=== PATIENT | male | born 1990 | race Two or more races ===

== ENCOUNTER 2017-01-27 10:37 | Emergency (ER) | payer MEDICAID, OTHER ==
[2017-01-27] MEDS ORDERED: DEXAMETHASONE SOD PHOS INJ 10 MG/1 ML VIAL IM ONE (11:17)
[2017-01-27] MEDS ORDERED: KETOROLAC TROMETHAMINE 60 MG/2 ML SDV IM ONE (11:17)
--- NOTE | 2017-01-27 11:21 | ER Document Report ---
ED ENT - General Chief Complaint: Sore Throat Stated Complaint: THROAT PAIN Time seen by provider: 11:16 Mode of Arrival: Ambulatory Information source: Patient Notes: 26-year-old male presents to ED for "very bad sore throat "he also has runny nose and cough. They she has not been able to eat anything solid for the last 3 days due to the pain in his throat. - HPI Patient complains to provider of: Throat problem Onset: Other Onset/Duration: Gradual - Saturday Quality of pain: Sharp, Stabbing Severity: Moderate Pain Level: 4 Context: Recent Illness Location of pain: Throat Associated symptoms: Cough, Runny nose, Sore throat Similar symptoms previously: No Recently seen / treated by doctor: No - Related Data Allergies/Adverse Reactions: No Known Allergies Allergy (Unverified 01/27/17 11:25) Past Medical History - General Information source: Patient - Social History Smoking Status: Current Every Day Smoker Cigarette use (# per day): Yes - half pack a day Chew tobacco use (# tins/day): No Smoking Education Provided: Yes - less than 1 minute Frequency of alcohol use: Occasional Drug Abuse: None Occupation: [employer] Lives with: Grandparent(s) Family History: Malignancy - Past Medical History Cardiac Medical History: Reports: None Pulmonary Medical History: Reports: None EENT Medical History: Reports: None Neurological Medical History: Reports: None Endocrine Medical History: Reports: None Renal/ Medical History: Reports: None Malignancy Medical History: Reports None GI Medical History: Reports: None Musculoskeltal Medical History: Reports None Skin Medical History: Reports None Psychiatric Medical History: Reports: None Traumatic Medical History: Reports: None Infectious Medical History: Reports: None Surgical Hx: Negative Past Surgical History: Reports: None - Immunizations Immunizations up to date: Yes Hx Diphtheria, Pertussis, Tetanus Vaccination: Yes Review of Systems - Review of Systems Constitutional: No symptoms reported EENT: Nose discharge, Sinus discharge, Throat pain Cardiovascular: No symptoms reported Respiratory: Cough Gastrointestinal: No symptoms reported Genitourinary: No symptoms reported Male Genitourinary: No symptoms reported Musculoskeletal: No symptoms reported Skin: No symptoms reported Hematologic/Lymphatic: No symptoms reported Neurological/Psychological: No symptoms reported -: Yes All other systems reviewed and negative Physical Exam - Vital signs Vitals: Temp Pulse Resp BP Pulse Ox 98.7 F 71 18 138/72 H 98 01/27/17 11:01 01/27/17 11:01 01/27/17 11:01 01/27/17 11:01 01/27/17 11:01 Interpretation: Normal - General General appearance: Appears well, Alert - HEENT Head: Normocephalic, Atraumatic Eyes: Normal Pupils: PERRL Ears: Normal External canal: Normal Tympanic membrane: Normal Sinus: Normal Nasal: Swelling, Clear rhinorrhea Mouth/Lips: Normal Mucous membranes: Normal Pharynx: Erythema, Exudate, Tonsillar hypertrophy Neck: Normal - Respiratory Respiratory status: No respiratory distress Chest status: Nontender Breath sounds: Nonproductive cough Chest palpation: Normal - Cardiovascular Rhythm: Regular Heart sounds: Normal auscultation Murmur: No - Abdominal Inspection: Normal Distension: No distension Bowel sounds: Normal Tenderness: Nontender Organomegaly: No organomegaly - Back Back: Normal, Nontender - Extremities General upper extremity: Normal inspection, Nontender, Normal color, Normal ROM , Normal temperature General lower extremity: Normal inspection, Nontender, Normal color, Normal ROM , Normal temperature, Normal weight bearing. No: Alvaerz's sign - Neurological Neuro grossly intact: Yes Cognition: Normal Orientation: AAOx4 Natalio Coma Scale Eye Opening: Spontaneous Natalio Coma Scale Verbal: Oriented Natalio Coma Scale Motor: Obeys Commands Natalio Coma Scale Total: 15 Speech: Normal Motor strength normal: LUE, RUE, LLE, RLE Sensory: Normal - Psychological Associated symptoms: Normal affect, Normal mood - Skin Skin Temperature: Warm Skin Moisture: Dry Skin Color: Normal Course - Re-evaluation Re-evalutation: 01/27/17 15:55 Discussed patient's assessment and history with Dr. Sharp. Toradol IV, Decadron IV, clindamycin IV and CT soft tissue neck were ordered. CT came back unsure if there is a peritonsillar abscess due to dental appliance. Dr. Sharp recommended calling ENT. Spoke with Dr. Handy in [facility] ears nose and throat. He requested that a CD of the CT as well as all lab results be sent with patient and for the patient to call at 8:00 in the morning to schedule a follow-up visit. CD and all the lab work as well as the CT report with patient as well as instructions to call the [facility] ears nose and throat at 8:00 in the morning. He was also sent home with a prescription for clindamycin. - Vital Signs Vital signs: Temp Pulse Resp BP Pulse Ox 98.4 F 75 16 126/75 H 99 01/27/17 14:51 01/27/17 14:51 01/27/17 14:51 01/27/17 14:51 01/27/17 14:51 - Laboratory Result Diagrams: 01/27/17 11:45 Laboratory results interpreted by me: 01/27/17 11:45 WBC 20.7 H Seg Neuts % (Manual) 84 H Band Neutrophils % 1 L Lymphocytes % (Manual) 7 L Abs Neuts (Manual) 17.6 H Abs Monocytes (Manual) 1.7 H - Diagnostic Test Radiology reviewed: Image reviewed, Reports reviewed Discharge - Discharge Clinical Impression: Strep throat Difficulty swallowing Qualifiers: Dysphagia type: unspecified Qualified Code(s): R13.10 - Dysphagia, unspecified Condition: Stable Disposition: HOME, SELF-CARE Additional Instructions: STREP THROAT: Your sore throat is due to the streptococcus germ (strep throat). Strep throat usually makes you feel quite ill with fever and aches, headache, swollen sore throat, and tender bumps under the angles of the jaw. Strep throat requires antibiotic treatment. Although the sore throat may go away by itself, complications such as rheumatic fever, kidney disease, or throat abscess can occur. We usually prescribe antibiotics by mouth. Be sure to take the medicine until it's gone. If you stop early, the strep may come back. If you are vomiting, are severely ill, or can't remember to take pills, we can give you an antibiotic shot. Take acetaminophen or ibuprofen for pain and fever. Sip frequent clear liquids, or use popsicles or ice chips. Anesthetic sprays or lozenges may help. Make sure the air in the room is not too dry. Avoid using decongestants or antihistamines. Call the doctor if there is no improvement in three days, or if you have difficulty breathing, increasing throat pain, high fever, rash, or frequent vomiting. Clindamycin You have been given a prescription for the antibiotic clindamycin. It is often prescribed for infections in the mouth, such as dental infections or abscesses, and for skin infections due to MRSA. It's important that you take all the medication, unless instructed otherwise by your physician. Failure to complete the entire course can result in relapse of your condition. Common side effects of antibiotics include nausea, intestinal cramping, or diarrhea. Women may develop vaginal yeast infections, and babies can get yeast (thrush) in the mouth following the use of antibiotics. Contact your physician if you develop significant side effects from this medication. Allergy to this antibiotic can result in hives, wheezing, faintness, or itching. If symptoms of allergy occur, stop the medication and call the doctor. Toradol Injection You have been given an injection of ketorolac tromethamine (Toradol). This is an excellent, safe drug for pain control. It also has potent antiinflammatory action. You should have significant pain relief within about one hour. Toradol is not addicting and is non-sedating. It does not interfere with driving or work. Call or return if you develop itching, hives, shortness of breath, or rash. STEROID MEDICATION: You have been given an injection of medicine of the cortisone/steroid class. This medication is used to control inflammation or allergy. It is often continued as a pill for a short period of time, until the acute process subsides. There are usually no side effects from short-term use of cortisone-like medications. Some persons feel an increased sense of well-being and are not sleepy at bedtime. Long-term use of cortisone medications is best avoided, unless required for a severe condition. If your condition does not remit, or relapses after the course of corticosteroid medication, you should consult your physician. FOLLOW-UP CARE: If you have been referred to a physician for follow-up care, call the physician s office for an appointment as you were instructed or within the next two days. If you experience worsening or a significant change in your symptoms, notify the physician immediately or return to the Emergency Department at any time for re-evaluation. I have spoken with a ENT doctor concerning your throat The doctor's name is Igor Platt in his nose and throat [id number] [facility] [id number] Prescriptions: Clindamycin HCl 300 mg PO Q6 #28 capsule Forms: Smoking Cessation Education, Return to Work
[2017-01-27] MEDS ORDERED: DEXAMETHASONE SOD PHOS INJ 10 MG/1 ML VIAL IV ONE (11:23)
[2017-01-27] MEDS ORDERED: KETOROLAC TROMETHAMINE INJ/PF 30 MG/1 ML SDV IV ONE (11:23)
[2017-01-27] MEDS ORDERED: CLINDAMYCIN 600 MG/D5W RTU 50 ML IV ONE (11:36)
[2017-01-27 11:59] LABS: HEMATOCRIT 45.6 % (37.9-51.0); HEMOGLOBIN 15.7 g/dL (13.5-17.0); HGB HCT DIFFERENCE 1.5; MEAN CORPUSCULAR HEMOGLOBIN 30.6 pg (27.0-33.4); MEAN CORPUSCULAR HGB CONC 34.5 g/dL (32.0-36.0); MEAN CORPUSCULAR VOLUME 89 fl (80-97); RED BLOOD COUNT 5.14 10^6/uL (4.35-5.55); WHITE BLOOD COUNT 20.7 10^3/uL (4.0-10.5)
[2017-01-27 12:20] LABS: BAND NEUTROPHILS % (MANUAL) 1 % (3-5); BASOPHILS % (MANUAL) 0 % (0-2); EOSINOPHILS % (MANUAL) 0 % (0-6); LYMPHOCYTES % (MANUAL) 7 % (13-45); TOTAL CELLS COUNTED 100
[2017-01-27 12:21] LABS: RBC MORPHOLOGY COMMENT NORMO-CYTIC/CHROMIC
[2017-01-27 14:52] VITALS: BP 126/75
== END 2017-01-27 14:51 | disposition home or self-care (01) ==
LOC: ER 10:37
DX: J02.0 Streptococcal pharyngitis (principal); R13.10 Dysphagia, unspecified; R05 Cough; J34.89 Other specified disorders of nose and nasal sinuses; F17.210 Nicotine dependence, cigarettes, uncomplicated; Z71.6 Tobacco abuse counseling
CPT/HCPCS: 99283; 96375; 96365; 36415; 87880; 85025; 86308; 70491; J1885; J1100

== ENCOUNTER 2017-03-02 15:35 | Emergency (ER) | payer OTHER ==
[2017-03-02 15:39] VITALS: BP 117/76
[2017-03-02] MEDS ORDERED: LIDOCAINE 1% INJ-PF (10 MG/ML) 30 ML SDV INJ ONE (16:07)
[2017-03-02] MEDS ORDERED: DIPH/PERTUSS(ACELL)/TETANUS VAC/PF 0.5 ML SYR (>=10YO) IM ONE (16:08)
--- NOTE | 2017-03-02 16:09 | ER Document Report ---
ED General - General Chief Complaint: Laceration Stated Complaint: SMALL HEAD LACERATION Time Seen by Provider: 03/02/17 16:07 Mode of Arrival: Ambulatory Information source: Patient Notes: 26-year-old male presents with laceration just horizontal to his upper auricle on the right ear. Tetanus is not up to date denies any other injuries TRAVEL OUTSIDE OF THE [place] IN LAST 30 DAYS: No - HPI Onset: Just prior to arrival Onset/Duration: Sudden Quality of pain: No pain Severity: Mild Pain Level: Denies Associated symptoms: None Exacerbated by: Denies Relieved by: Denies Similar symptoms previously: No Recently seen / treated by doctor: No - Related Data Allergies/Adverse Reactions: No Known Allergies Allergy (Verified 03/02/17 15:37) Past Medical History - Social History Smoking Status: Never Smoker Cigarette use (# per day): No Chew tobacco use (# tins/day): No Smoking Education Provided: No Frequency of alcohol use: None Drug Abuse: None Family History: Malignancy Patient has suicidal ideation: No Patient has homicidal ideation: No Renal/ Medical History: Denies: Hx Peritoneal Dialysis Surgical Hx: Negative - Immunizations Immunizations up to date: Yes Hx Diphtheria, Pertussis, Tetanus Vaccination: Yes Review of Systems - Review of Systems Notes: REVIEW OF SYSTEMS: CONSTITUTIONAL : Denies fever, chills, or sweats. Denies recent illness. EENT: Denies eye, ear, throat, or mouth pain or symptoms. Denies nasal or sinus congestion or discharge. Denies throat, tongue, or mouth swelling or difficulty swallowing. CARDIOVASCULAR: Denies chest pain. Denies palpitations or racing or irregular heart beat. Denies ankle edema. RESPIRATORY: Denies cough, cold, or chest congestion. Denies shortness of breath, difficulty breathing, or wheezing. GASTROINTESTINAL: Denies abdominal pain or distention. Denies nausea, vomiting , or diarrhea. Denies blood in vomitus, stools, or per rectum. Denies black, tarry stools. Denies constipation. GENITOURINARY: Denies difficulty urinating, painful urination, burning, frequency, blood in urine, or discharge. MUSCULOSKELETAL: Denies back or neck pain or stiffness. Denies joint pain or swelling. SKIN: Laceration HEMATOLOGIC : Denies easy bruising or bleeding. LYMPHATIC: Denies swollen, enlarged glands. NEUROLOGICAL: Denies confusion or altered mental status. Denies passing out or loss of consciousness. Denies dizziness or lightheadedness. Denies headache. Denies weakness or paralysis or loss of use of either side. Denies problems with gait or speech. Denies sensory loss, numbness, or tingling. Denies seizures. PSYCHIATRIC: Denies anxiety or stress. Denies depression, suicidal ideation, or homicidal ideation. ALL OTHER SYSTEMS REVIEWED AND NEGATIVE. Dictation was performed using [employer] voice recognition software PHYSICAL EXAMINATION: GENERAL: Well-appearing, well-nourished and in no acute distress. HEAD: Superficial laceration of the right face EYES: Pupils equal round and reactive to light, extraocular movements intact, sclera anicteric, conjunctiva are normal. ENT: Nares patent, oropharynx clear without exudates. Moist mucous membranes. NECK: Normal range of motion, supple without lymphadenopathy LUNGS: Breath sounds clear to auscultation bilaterally and equal. No wheezes rales or rhonchi. HEART: Regular rate and rhythm without murmurs ABDOMEN: Soft, nontender, nondistended abdomen. No guarding, no rebound. No masses appreciated. Musculoskeletal: Normal range of motion, no pitting or edema. No cyanosis. NEUROLOGICAL: Cranial nerves grossly intact. Normal speech, normal gait. Normal sensory, motor exams PSYCH: Normal mood, normal affect. SKIN: 3.3 cm laceration wide in the middle just horizontal to the right ear Physical Exam - Vital signs Vitals: Temp Pulse Resp BP Pulse Ox 98.7 F 93 18 117/76 99 03/02/17 15:38 03/02/17 15:38 03/02/17 15:38 03/02/17 15:38 03/02/17 15:38 Course - Re-evaluation Re-evalutation: 03/02/17 16:10 - Vital Signs Vital signs: Temp Pulse Resp BP Pulse Ox 98.7 F 93 18 117/76 99 03/02/17 15:38 03/02/17 15:38 03/02/17 15:38 03/02/17 15:38 03/02/17 15:38 Procedures - Laceration/Wound Repair Right Face Time completed: 16:00 Wound length (cm): 3.3 Wound's Depth, Shape: Superficial, Linear, Flap Laceration pre-procedure: Sterile PPE donned, Sterile drapes applied, Shur- Clens applied Anesthetic type: 1% Lidocaine Volume Anesthetic (mLs): 5 Wound explored: Clean, No foreign body removed Wound Debrided: Minimal Wound Repaired With: Sutures Suture Size/Type: 5:0, Ethilon Number of Sutures: 3 Post-procedure wound care: Sterile dressing applied Post-procedure NV exam normal: Yes Complications: No Discharge - Discharge Clinical Impression: Laceration Facial injury Qualifiers: Encounter type: initial encounter Qualified Code(s): S09.93XA - Unspecified injury of face, initial encounter Condition: Stable Disposition: HOME, SELF-CARE Instructions: Laceration Care ([facility]), Soap Cleansing ([facility]), Tetanus Immunization Given ([facility]) Additional Instructions: Follow-up in 3-5 days for removal of sutures or immediately if there is any sign of infection
== END 2017-03-02 16:35 | disposition home or self-care (01) ==
LOC: ER 15:35
PROC: 0HQ1XZZ Repair Face Skin, External Approach (ICD-10-PCS; principal; 2017-03-02)
DX: S01.311A Laceration without foreign body of right ear, initial encounter (principal); S09.93XA Unspecified injury of face, initial encounter; X58.XXXA Exposure to other specified factors, initial encounter
CPT/HCPCS: 90471; 90715; 99282

== ENCOUNTER 2017-05-30 14:47 | Emergency (ER) | payer OTHER ==
[2017-05-30] MEDS ORDERED: PENICILLIN G BENZATHINE 1.2 MILLION UNIT/2 ML DISP.SYRIN IM ONE (15:37)
--- NOTE | 2017-05-30 15:48 | ER Document Report ---
ED ENT - General Chief Complaint: Sore Throat Stated Complaint: SORE THROAT Time Seen by Provider: 05/30/17 15:37 Notes: Patient says he has had a sore throat for the past 3 days. He has also had nausea, vomiting, and diarrhea. Is unable to keep down any fluids. Has had a fever as well. Some slight cough. He is here with a coworker who has had similar symptoms, except for the sore throat, for similar timeframe patient has no known exposure to anyone with strep or other infection of the throat. He said he felt like he had the flu. TRAVEL OUTSIDE OF THE [place] IN LAST 30 DAYS: No - Related Data Allergies/Adverse Reactions: No Known Allergies Allergy (Verified 05/30/17 15:06) Past Medical History - Social History Smoking Status: Current Every Day Smoker Chew tobacco use (# tins/day): No Frequency of alcohol use: Social Drug Abuse: None Family History: Reviewed & Not Pertinent, Malignancy Patient has suicidal ideation: No Patient has homicidal ideation: No Past Surgical History: Reports: Hx Oral Surgery - wisdom teeth extraction x 4 - Immunizations Immunizations up to date: Yes Hx Diphtheria, Pertussis, Tetanus Vaccination: Yes Review of Systems - Review of Systems Notes: REVIEW OF SYSTEMS: CONSTITUTIONAL : Has had a slight fever. EENT: See HPI regarding sore throat. Denies eye, ear, nose or mouth or other symptoms. CARDIOVASCULAR: Denies chest pain. RESPIRATORY: Mild cough, no significant chest congestion, or shortness of breath. GASTROINTESTINAL: Denies abdominal pain but has nausea, vomiting, or diarrhea. GENITOURINARY: Denies difficulty or painful urinating, urinary frequency, blood in urine. MUSCULOSKELETAL: Denies back or neck pain. Denies joint pain or swelling. SKIN: Denies rash or skin lesions. NEUROLOGICAL: Denies LOC or altered mental status. Has some headache. Denies sensory loss or motor deficits. ALL OTHER SYSTEMS REVIEWED AND NEGATIVE. Physical Exam - Vital signs Vitals: Temp Pulse Resp BP Pulse Ox 100.0 F 90 20 112/74 100 05/30/17 15:06 05/30/17 15:06 05/30/17 15:06 05/30/17 15:06 05/30/17 15:06 Interpretation: Febrile - Notes Notes: PHYSICAL EXAMINATION: GENERAL: Well-appearing, in no acute distress. Temp 100.0. HEAD: Atraumatic, normocephalic. EYES: Pupils equal round and reactive to light, extraocular movements intact. ENT: Posterior oropharynx is quite red soft tissue swelling without any asymmetrical swelling. Extensive exudate throughout the posterior oropharynx and tonsillar region. Airway patent. Can swallow without significant difficulty. No airway or oral passage impingement. Voice is normal. Moist mucous membranes. Several small slightly tender lymph nodes in the submandibular region bilaterally. NECK: Normal range of motion, supple. LUNGS: Breath sounds clear and equal bilaterally. HEART: Regular rate and rhythm without murmurs. ABDOMEN: Soft, nontender. No guarding or rebound. BACK: No tenderness throughout entire back. EXTREMITIES: Normal range of motion without pain. NEUROLOGICAL: Normal speech, normal gait. Normal sensory, motor, and reflex exams. Awake, alert, and oriented x3. Cranial nerves normal. SKIN: Warm, dry, no rashes. Course - Re-evaluation Re-evalutation: 05/30/17 20:56 Patient was given a single dose of LA Bicillin 1.2 million units IM. - Vital Signs Vital signs: Temp Pulse Resp BP Pulse Ox 99.8 F 91 20 118/77 98 05/30/17 16:05 05/30/17 16:05 05/30/17 15:06 05/30/17 16:05 05/30/17 16:05 Discharge - Discharge Clinical Impression: Strep throat, Tonsillitis Condition: Stable Disposition: HOME, SELF-CARE Additional Instructions: Tonsillitis Tonsillitis is infection of the tonsils. Symptoms include sore throat, difficulty swallowing, fever and aches, and tender lumps under the angle of the jaw. Tonsillitis can be caused by bacteria or viruses. Viral tonsillitis must get better on its own. Antibiotics don't help. The doctor may test for mononucleosis if symptoms last many days. We can only treat the symptoms. Bacterial tonsillitis is treated with antibiotics. It may take a few days before improvement occurs. It's important to take all the antibiotics. Take acetaminophen or ibuprofen for pain and fever. Sip frequent clear liquids, or use popsicles or ice chips. Anesthetic sprays or lozenges may help a little (the pain of tonsillitis is deep, and isn't helped much by numbing the surface). Make sure the air in the room is not too dry. Avoid using decongestants or antihistamines. Tonsillectomy may be necessary if you have several episodes of tonsillitis within a couple of years, or if there are complications from your tonsillitis. It's usually not needed. Call the doctor if there is no improvement in two days, or if you have difficulty breathing, increasing throat pain, high fever, rash, or frequent vomiting. SORE THROAT: Sore throats may be caused by viruses, bacteria, or fungi. Most are due to a virus, and must get better on their own. Bacterial sore throats, particularly those due to "strep," need treatment with antibiotics. If an antibiotic is prescribed, be sure to take the medication for a full 10 days. Failure to take the antibiotic can result in complications such as rheumatic fever. Sometimes, an injection of antibiotics is given instead of pills or liquid. This single "shot" is equal in effectiveness to the oral medication. To relieve symptoms, take acetaminophen for pain. Sip clear liquids frequently, or eat popsicles or ice chips. Anesthetic sprays or lozenges may help. Make sure the air in the room is not too dry. Avoid using decongestants or antihistamines. Call the doctor if there is no improvement in two days, or if you have difficulty breathing, increasing throat pain, high fever, rash, or frequent vomiting. STREP THROAT: Your sore throat is due to the streptococcus germ (strep throat). Strep throat usually makes you feel quite ill with fever and aches, headache, swollen sore throat, and tender bumps under the angles of the jaw. Strep throat requires antibiotic treatment. Although the sore throat may go away by itself, complications such as rheumatic fever, kidney disease, or throat abscess can occur. We usually prescribe antibiotics by mouth. Be sure to take the medicine until it's gone. If you stop early, the strep may come back. If you are vomiting, are severely ill, or can't remember to take pills, we can give you an antibiotic shot. Take acetaminophen or ibuprofen for pain and fever. Sip frequent clear liquids, or use popsicles or ice chips. Anesthetic sprays or lozenges may help. Make sure the air in the room is not too dry. Avoid using decongestants or antihistamines. Call the doctor if there is no improvement in three days, or if you have difficulty breathing, increasing throat pain, high fever, rash, or frequent vomiting. ORAL NARCOTIC MEDICATION: You have been given a prescription for pain control. This medication is a narcotic. It's best taken with food, as nausea can result if taken on an empty stomach. Don't operate machinery or drive within six hours of taking this medication. Do not combine this medicine with alcohol, or with any medication which can cause sedation (such as cold tablets or sleeping pills) unless you get permission from the physician. Narcotics tend to cause constipation. If possible, drink plenty of fluids and eat a diet high in fiber and fruits. PENICILLIN V K: You have been given an injection of Penicillin VK. Your physician has determined that this is the best antibiotic for your condition. Antinausea Medication You have been given a medication to suppress nausea and vomiting. This type of medication can be given as a shot, pill, or suppository. It will usually last for many hours. Pills and shots usually last six to eight hours, suppositories last about 12 hours. For the typical illness, only one or two doses of the medication may be necessary. Mild lightheadedness may occur. This type of medicine can cause drowsiness. Do not drive or operate dangerous machinery while under its influence. Do not mix with alcohol. See your doctor at once if you have muscle spasms or tightness, or uncontrollable motions (particularly of the neck, mouth, or jaw). Persistent vomiting or severe lightheadedness should also be evaluated by the physician. FOLLOW-UP CARE: If you have been referred to a physician for follow-up care, call the physician s office for an appointment as you were instructed or within the next two days. If you experience worsening or a significant change in your symptoms, notify the physician immediately or return to the Emergency Department at any time for re-evaluation. Return for further evaluation Saturday if you are not improving. Return at anytime if you develop worsening difficulty swallowing or any difficulty breathing. Prescriptions: Oxycodone HCl/Acetaminophen [Percocet 5-325 mg Tablet] 1 - 2 tab PO Q4H PRN #15 tablet PRN Reason: Promethazine HCl [Phenergan 25 mg Tablet] 1 - 2 tab PO Q6H PRN #15 tablet PRN Reason: Forms: Return to Work
[2017-05-30 16:06] VITALS: BP 118/77
== END 2017-05-30 16:06 | disposition home or self-care (01) ==
LOC: ER 14:47
DX: J02.0 Streptococcal pharyngitis (principal); R11.2 Nausea with vomiting, unspecified; R19.7 Diarrhea, unspecified; R50.9 Fever, unspecified; R05 Cough; F17.200 Nicotine dependence, unspecified, uncomplicated
CPT/HCPCS: 99282; 96372; J0561

== ENCOUNTER 2019-12-31 21:27 | Emergency (ER) | payer OTHER ==
[2019-12-31] MEDS ORDERED: CEPHALEXIN 500 MG CAPSULE PO ONE (22:46)
[2019-12-31] MEDS ORDERED: DIPH/PERTUSS(ACELL)/TETANUS VAC/PF 0.5 ML SYR (>=10YO) IM ONE (22:46)
--- NOTE | 2019-12-31 22:47 | ER Document Report ---
ED Medical Screen (RME) - General Chief Complaint: Lip Injury Stated Complaint: LIP LACERATION Notes: Patient is a 29-year-old male with no significant past medical history presents to the emergency department with a chief complaint of laceration of the left upper lip that occurred before arrival. He states a softball struck him in the mouth. He states the laceration is through and through to the anterior mucosal surface of the lip. Denies any uncontrollable bleeding. Unsure of his last tetanus immunization. Denies any significant dental injury. TRAVEL OUTSIDE OF THE [place] IN LAST 30 DAYS: No - Related Data Allergies/Adverse Reactions: No Known Allergies Allergy (Verified 12/31/19 22:25) Past Medical History - Social History Chew tobacco use (# tins/day): No Renal/ Medical History: Denies: Hx Peritoneal Dialysis Past Surgical History: Reports: Hx Oral Surgery - wisdom teeth extraction x 4 - Immunizations Immunizations up to date: Yes Hx Diphtheria, Pertussis, Tetanus Vaccination: Yes Physical Exam - Vital signs Vitals: Temp Pulse Resp BP Pulse Ox 97.6 F 56 L 18 121/70 100 12/31/19 21:35 12/31/19 21:35 12/31/19 21:35 12/31/19 21:35 12/31/19 21:35 Course - Vital Signs Vital signs: Temp Pulse Resp BP Pulse Ox 97.6 F 56 L 18 121/70 100 12/31/19 21:35 12/31/19 21:35 12/31/19 21:35 12/31/19 21:35 12/31/19 21:35
[2020-01-01] MEDS ORDERED: LIDOCAINE 1% INJ-PF (10 MG/ML) 30 ML SDV INJ ONE (01:15)
[2020-01-01] MEDS ORDERED: HYDROCODONE/ACETAMINOPHEN 5-325 MG TABLET PO ONE (01:15)
[2020-01-01] MEDS ORDERED: HYDROCODONE/ACETAMINOPHEN 5-325 MG (6 TAB/ER DISP) PO PRN (01:59)
[2020-01-01] MEDS ORDERED: BACITRACIN ZINC OINTMENT 15 GM TP ONE (01:59)
--- NOTE | 2020-01-01 01:59 | ER Document Report ---
ED General - General Chief Complaint: Lip Injury Stated Complaint: LIP LACERATION Time Seen by Provider: 01/01/20 00:38 Primary Care Provider: [facility] [Provider Group] - Follow up in 3-5 days OSEAS ONEAL MD [ACTIVE STAFF] - Follow up in 3-5 days ( ) Notes: 29-year-old male presents with lip laceration that occurred approximately 1 hour prior to arrival. Patient was hit in the mouth with a softball and states he caught the lip on his tooth. Patient's tetanus was updated in triage. Patient was also given 1 dose of Keflex in triage. Patient denies any other injuries. TRAVEL OUTSIDE OF THE [place] IN LAST 30 DAYS: No - Related Data Allergies/Adverse Reactions: No Known Allergies Allergy (Verified 12/31/19 22:25) Past Medical History - Social History Smoking Status: Current Every Day Smoker Chew tobacco use (# tins/day): No Family History: Reviewed & Not Pertinent, Malignancy Patient has suicidal ideation: No Patient has homicidal ideation: No Renal/ Medical History: Denies: Hx Peritoneal Dialysis Past Surgical History: Reports: Hx Oral Surgery - wisdom teeth extraction x 4 - Immunizations Immunizations up to date: Yes Hx Diphtheria, Pertussis, Tetanus Vaccination: Yes Review of Systems - Review of Systems Notes: Constitutional: Negative for fever. HENT: Negative for sore throat. Eyes: Negative for visual changes. Cardiovascular: Negative for chest pain. Respiratory: Negative for shortness of breath. Gastrointestinal: Negative for abdominal pain, vomiting or diarrhea. Genitourinary: Negative for dysuria. Musculoskeletal: Negative for back pain. Skin: Positive for laceration. Negative for rash. Neurological: Negative for headaches, weakness or numbness. 10 point ROS negative except as marked above and in HPI. Physical Exam - Vital signs Vitals: Temp Pulse Resp BP Pulse Ox 97.6 F 56 L 18 121/70 100 12/31/19 21:35 12/31/19 21:35 12/31/19 21:35 12/31/19 21:35 12/31/19 21:35 - Notes Notes: GENERAL: Well-appearing, well-nourished and in no acute distress. HEAD: Atraumatic, normocephalic. EYES: Extraocular movements intact, sclera anicteric, conjunctiva are normal. ENT: Nares patent, oropharynx clear without exudates. No dental injury. Moist mucous membranes. V shaped flap noted superior to upper lip, 0.5 cm. Laceration also noted to inner lip approx 0.5 cm linear. NECK: Normal range of motion, supple without lymphadenopathy or JVD. EXTREMITIES: Normal range of motion, no pitting or edema. No clubbing or cyanosis. NEUROLOGICAL: Cranial nerves II through XII grossly intact. Normal speech, normal gait. PSYCH: Normal mood, normal affect. SKIN: Laceration - See ENT. Warm, Dry, normal turgor, no rashes or lesions noted. Course - Re-evaluation Re-evalutation: 01/01/20 lip laceration. Intraoral laceration as well. Number four 6-0 Prolene sutures placed. Adequate closure. Patient tolerated procedure without difficulty. Tetanus and Keflex were given in the ER. Patient also given prescription for Keflex. Strict return precautions given. Patient given close follow-up with PCP. Patient voices understanding and agrees with plan of care. - Vital Signs Vital signs: Temp Pulse Resp BP Pulse Ox 97.6 F 56 L 18 121/70 100 12/31/19 21:35 12/31/19 21:35 12/31/19 21:35 12/31/19 21:35 12/31/19 21:35 Procedures - Laceration/Wound Repair Face Wound length (cm): 0.5 - V shaped flap Wound's Depth, Shape: Flap Laceration pre-procedure: Sterile PPE donned, Other - Irrigated with saline Anesthetic type: 1% Lidocaine Volume Anesthetic (mLs): 3 Wound explored: Clean Irrigated w/ Saline (mLs): 50 Wound Repaired With: Sutures Suture Size/Type: 6:0, Prolene Number of Sutures: 4 Layer Closure?: No Post-procedure NV exam normal: Yes Complications: No Discharge - Discharge Clinical Impression: Lip laceration Qualifiers: Encounter type: initial encounter Qualified Code(s): S01.511A - Laceration without foreign body of lip, initial encounter Condition: Stable Disposition: HOME, SELF-CARE Instructions: Laceration Care ([facility]), Oral Narcotic Medication ([facility]), Prophylactic Antibiotic ([facility]), Soap Cleansing ([facility]), Tetanus Immunization Given ([facility]) Additional Instructions: Please eat soft foods for the next 2 to 3 days. Rinse the mouth with water after eating. Avoid spicy or salty wounds until the wound on the inside of your lip is healed. Avoid the use of straws. Please follow-up with urgent care or in ER in 5 days for suture removal. You had [address] antibiotic topical ointment to the dry skin. Please follow-up with your primary care doctor or 1 of the clinics listed in 3 to 5 days. Return immediately to ER if you having any worsening symptoms, including increased swelling, pus drainage, sutures breaking open, redness to area, increased pain, fever, or any other symptoms that are concerning to you. Prescriptions: Cephalexin Monohydrate [Keflex 500 mg Capsule] 500 mg PO Q6H 7 Days #27 capsule Referrals: OSEAS ONEAL MD [ACTIVE STAFF] - Follow up in 3-5 days ( ) [facility] [Provider Group] - Follow up in 3-5 days
[2020-01-01 02:10] VITALS: BP 115/63
== END 2020-01-01 02:19 | disposition home or self-care (01) ==
LOC: ER 21:27
DX: S01.511A Laceration without foreign body of lip, initial encounter (principal); W21.07XA Struck by softball, initial encounter; Z23 Encounter for immunization; F17.200 Nicotine dependence, unspecified, uncomplicated
CPT/HCPCS: 99282; 90471; 90715; 40830; J3490